=== PATIENT | female | born 1985 | race Caucasian/White ===

== ENCOUNTER 2023-02-10 15:02 | Day surgery (SDC) | payer OTHER ==
[2023-02-10] MEDS ORDERED: Bupivacaine 0.5% 30 ML SDV ONE (15:17)
[2023-02-10] MEDS: Lactated Ringers 1,000 ML IV SCH ×2 (15:20→17:11)
[2023-02-10] MEDS ORDERED: fentaNYL 100 MCG/2 ML SDV ONE (15:22)
[2023-02-10] MEDS ORDERED: Propofol 200 MG/20 ML SDV ONE (15:22)
[2023-02-10] MEDS ORDERED: Lidocaine 1% 8 ML ONE (15:22)
[2023-02-10] MEDS ORDERED: Midazolam 1 MG/ML 2 ML SDV ONE (15:22)
[2023-02-10] MEDS ORDERED: Succinylcholine 200 MG/10 ML MDV ONE (15:34)
[2023-02-10] MEDS ORDERED: Rocuronium 50 MG/5 ML Vial ONE (15:35)
[2023-02-10] MEDS ORDERED: Sodium Chloride 0.9% 10 ML Syringe FLUSH PRN (15:38)
[2023-02-10] MEDS ORDERED: Ondansetron 4 MG/2 ML SDV ONE (16:00)
[2023-02-10] MEDS ORDERED: ceFAZolin 2 GM Vial ONE (16:06)
[2023-02-10] MEDS ORDERED: Metoclopramide 10 MG/2 ML SDV ONE (16:24)
[2023-02-10] MEDS ORDERED: HYDROmorphone 0.5 MG/0.5 ML Syringe IVPUSH PRN (16:32)
[2023-02-10] MEDS ORDERED: fentaNYL 100 MCG/2 ML SDV IVPUSH PRN (16:32)
[2023-02-10] MEDS ORDERED: Ketorolac 30 MG/ML SDV ONE (16:54)
[2023-02-10] MEDS ORDERED: Neostigmine Methylsulfate 10 MG/10 ML MDV ONE (17:17)
[2023-02-10] MEDS ORDERED: Dexamethasone 4 MG/ML 5 ML MDV ONE (17:17)
[2023-02-10] MEDS ORDERED: Sodium Chloride 0.9% 10 ML Syringe FLUSH SCH (21:00)
== END 2023-02-10 19:15 | disposition home or self-care (01) ==
LOC: JD.SDS 15:02
PROVIDERS: ATTEND Obstetrics & Gynecology
DX: N83.511 Torsion of right ovary and ovarian pedicle (principal); N83.201 Unspecified ovarian cyst, right side; Z91.041 Radiographic dye allergy status
CPT/HCPCS: 36415; 58661; 86850; 86900; 86901; J0330; J0690; J1100; J1885; J2250; J2405; J2704; J2710; J2765; J3010; J3490; J7120; 00840; 99140